=== PATIENT | female | born 1995 | race Caucasian/White ===

== ENCOUNTER → 2020-10-22 | Outpatient (CLI) | payer BC ==
[2020-10-22 06:35] LABS: HEMOGLOBIN 13.9 gm/dl (12.3-15.3); RED BLOOD COUNT 4.35 M/UL (4.00-5.10); WHITE BLOOD COUNT 5.1 K/UL (4.5-11.0)
[2020-10-22 07:00] LABS: BUN/CREATININE RATIO 20 (0-10)
[2020-10-23 08:14] LABS: FSH, SERUM 3.7 mIU/mL (.); TESTOSTERONE, SERUM 30 ng/dL (8-48); VITAMIN D, 25-HYDROXY 35.1 ng/mL (30.0-100.0)
== END ==
LOC: LAB 06:13
PROVIDERS: Family Medicine
DX: N92.6 Irregular menstruation, unspecified (principal); Z83.3 Family history of diabetes mellitus; Z83.49 Family history of other endocrine, nutritional and metabolic diseases
CPT/HCPCS: 36415; 80053; 80061; 82607; 82670; 83001; 83002; 83921; 84403; 84439; 84443; 84481; 85025

== ENCOUNTER 2021-10-27 16:32 | Inpatient (IN) | payer BC ==
[~2021-10-27] VITALS: Ht 157.5 cm; Wt 77.1 kg
[2021-10-27 17:17] LABS: HEMOGLOBIN 12.4 gm/dl (12.3-15.3); RED BLOOD COUNT 4.21 M/UL (4.00-5.10); WHITE BLOOD COUNT 10.8 K/UL (4.5-11.0)
[2021-10-27] MEDS ORDERED: PRENATAL VITAM1 EAC3 PO (17:47)
[2021-10-28] MEDS ORDERED: HYDROCODON-ACE1 EAC4 PO (18:44)
[2021-10-28] MEDS ORDERED: COLACE 100MG C100 MG PO (18:44)
[2021-10-28] MEDS ORDERED: IBUPROFEN800 MG PO (18:44)
[2021-10-29 04:15] LABS: HEMOGLOBIN 11.5 gm/dl (12.3-15.3)
== END 2021-10-30 16:24 | disposition home or self-care (01) | DRG 807 ==
LOC: GENOP 16:32 → OB 17:05 → CDU 17:05 → OB 10-28 07:00
PROVIDERS: Obstetrics & Gynecology; ADMIT Obstetrics & Gynecology
PROC: 10E0XZZ Delivery of Products of Conception, External Approach (ICD-10-PCS; principal; 2021-10-28)
PROC: 10907ZC Drainage of Amniotic Fluid, Therapeutic from Products of Conception, Via Natural or Artificial Opening (ICD-10-PCS; 2021-10-28)
PROC: 0HQ9XZZ Repair Perineum Skin, External Approach (ICD-10-PCS; 2021-10-28)
PROC: 3E033VJ Introduction of Other Hormone into Peripheral Vein, Percutaneous Approach (ICD-10-PCS; 2021-10-28)
PROC: 4A1H7CZ Monitoring of Products of Conception, Cardiac Rate, Via Natural or Artificial Opening (ICD-10-PCS; 2021-10-28)
PROC: 10H073Z Insertion of Monitoring Electrode into Products of Conception, Via Natural or Artificial Opening (ICD-10-PCS; 2021-10-28)
PROC: 0UH97HZ Insertion of Contraceptive Device into Uterus, Via Natural or Artificial Opening (ICD-10-PCS; 2021-10-28)
PROC: 3E0234Z Introduction of Serum, Toxoid and Vaccine into Muscle, Percutaneous Approach (ICD-10-PCS; 2021-10-28)
DX: O36.5930 Maternal care for other known or suspected poor fetal growth, third trimester, not applicable or unspecified (principal); Z37.0 Single live birth; Z20.822 Contact with and (suspected) exposure to COVID-19; O70.0 First degree perineal laceration during delivery; Z3A.37 37 weeks gestation of pregnancy; Z83.3 Family history of diabetes mellitus; Z82.49 Family history of ischemic heart disease and other diseases of the circulatory system; Z23 Encounter for immunization
CPT/HCPCS: 36415; 81001; 82800; 85014; 85018; 85025; 90471; 90472; 90707; 90715; J2590; J7120